=== PATIENT | female | born 1940 | race Caucasian/White ===

== ENCOUNTER 2018-12-20 02:27 | Inpatient (IN) | payer OTHER ==
[~2018-12-20] VITALS: Ht 157.5 cm; Wt 89.6 kg
[~2018-12-20 02:27] MED LIST: AMLO-145 PO; CHOL200056 PO; METO-448 PO
[2018-12-20 04:27] VITALS: BP 206/87; PULSE 84; RESP 18
[2018-12-20] MEDS ORDERED: ONDANSETRON 4 MG INJ IV PRN (04:30)
[2018-12-20] MEDS ORDERED: NACL 0.9% 3 ML SYG IV SCH (04:30)
[2018-12-20] MEDS ORDERED: hydrALAzine 20 MG INJ IV ONE (04:30)
[2018-12-20] MEDS ORDERED: ALBUTEROL/IPRATROPIUM (NEB) 3 ML AMP HHN PRN (04:30)
[2018-12-20 04:31] VITALS: BP 173/64; PULSE 85; RESP 18
[2018-12-20 04:33] VITALS: Ht 157.5 cm; Wt 89.6 kg
[2018-12-20] MEDS: DEXTROSE 5%-0.45% NACL 1,000 ML IV SCH ×3 (04:52→15:50)
[2018-12-20 05:15] VITALS: BP 159/66; PULSE 96
[2018-12-20 08:19] VITALS: BP 133/63; PULSE 82; RESP 18
[2018-12-20] MEDS: METOPROLOL 25 MG TAB PO SCH ×2 (13:25→23:50)
[2018-12-20] MEDS ORDERED: ACETAMINOPHEN 325 MG TAB PO PRN (16:00)
[2018-12-20 20:00] VITALS: BP 151/96; PULSE 66; RESP 18
[2018-12-21 02:00] VITALS: BP 157/70; PULSE 71; RESP 17
[2018-12-21] MEDS: DEXTROSE 5%-0.45% NACL 1,000 ML IV SCH (03:39)
[2018-12-21 08:00] VITALS: BP 148/65; PULSE 68; RESP 16
[2018-12-21] MEDS: CHOLECALCIFEROL 2,000 UNIT CAP PO SCH (08:58)
[2018-12-21] MEDS: METOPROLOL 25 MG TAB PO SCH ×2 (08:59→21:04)
[2018-12-21] MEDS ORDERED: NON-FORMULARY/PATIENT OWN MED (Cholecalciferol (Vitamin D3) (Vitamin D-3) 2,000 UNIT) PO SCH (09:00)
[2018-12-21 14:00] VITALS: BP 185/79; PULSE 76; RESP 16
[2018-12-21] MEDS: AMLODIPINE 5 MG TAB PO SCH ×2 (14:40→21:05)
[2018-12-21 17:00] VITALS: BP 125/58; PULSE 70; RESP 18
[2018-12-21 20:24] VITALS: BP 160/67; PULSE 80; RESP 19
[2018-12-22 02:13] VITALS: BP 131/60; PULSE 75; RESP 18
[2018-12-22 08:00] VITALS: BP 144/65; PULSE 72; RESP 18
[2018-12-22] MEDS: AMLODIPINE 5 MG TAB PO SCH ×2 (09:00→09:04)
[2018-12-22] MEDS: CHOLECALCIFEROL 2,000 UNIT CAP PO SCH (09:03)
[2018-12-22] MEDS: METOPROLOL 25 MG TAB PO SCH (09:04)
[2018-12-22 14:00] VITALS: BP 135/63; PULSE 70; RESP 16
== END 2018-12-22 15:36 | disposition home or self-care (01) | DRG 390 ==
LOC: 5EC 03:22
PROVIDERS: ADMIT Internal Medicine; ATTEND Internal Medicine
DX: K56.600 Partial intestinal obstruction, unspecified as to cause (principal); I16.0 Hypertensive urgency; I10 Essential (primary) hypertension; E66.9 Obesity, unspecified; Z68.36 Body mass index [BMI] 36.0-36.9, adult; Z71.3 Dietary counseling and surveillance; Z90.5 Acquired absence of kidney; Z90.49 Acquired absence of other specified parts of digestive tract
CPT/HCPCS: 74018; 80048; 80053; 83735; 84100; 85025; 87081; J0360; J7042